=== PATIENT | male | born 1985 | race Caucasian/White ===

== ENCOUNTER 2024-12-26 09:05 | Emergency (ER) | payer OTHER, SELFPAY ==
--- NOTE | 2024-12-26 09:07 | ED_ITS ---
HPI - Extremity Injury (Lower) General Chief Complaint: Skin/Abscess/Foreign Body Stated Complaint: R knee pain Time Seen by Provider: 12/26/24 09:06 Source: patient Mode of arrival: ambulatory Limitations: no limitations History of Present Illness HPI Narrative: Rufus is a 39 year old male patient presenting to the clinic today with c/o right redness and swelling times 4-5 days. He reports he may have been bit by an insect. Has some dried yellow honey-crusted discharge over the right anterior knee with localized redness and swelling. History of MRSA in the past. Denies any fevers, chills, body aches. Has not taken any medications to treat his symptoms. Denies any itching or pain at this time. Related Data Home Medications ?Medication ?Instructions ?Recorded ?Confirmed ?Last Taken ?Type diphenhydramine HCl 50 mg capsule 50 mg PO QHS 5 07/29/24 Unknown History ([employer] [facility]els) pantoprazole 40 mg tablet,delayed mg PO 07/29/2407/29 Unknown History release duloxetine 30 mg capsule,delayed mg PO 12/26/24 Unkno wn History release methylphenidate HCl 18 mg mg PO 12/26/24 Unknown Hist ory tablet,extended release 24 hr Allergies Allergy/AdvReac Type Severity Reaction Status Date / Time doxycycline Allergy Mild Other Verified 07/29/24 14:13 Review of Systems Review of Systems: Pertinent positives per HPI. Patient denies any fever, chills, rash, headache, visual changes, dizziness, cough, runny nose, sore throat, shortness of breath, chest pain, palpitations, nausea, vomiting, diarrhea, constipation, abdominal pain, or any urinary issues. [facility] Family History Family History Grandparent Diabetes mellitus Hypertension Social History Social History Smoking status: Never smoker Alcohol intake: former Substance use: never Substance use type: does not use Comments At the time of my signature, I reviewed and agree with the nursing past medical, surgical, social, and family history. There is no relevant family history pertinent to the patient complaint. Exam Narrative: General: Well-developed, well nourished, in no apparent distress Head: Normocephalic, atraumatic. Cardio: Regular rate and rhythm, s1 and s2 normal, no murmur appreciated. Resp: Clear to auscultation bilaterally, no rhonchi, rales, wheezing or rubs. Musculoskeletal: No deformity, non-tender to palpation, grossly normal range of motion, muscle strength strong and equal, peripheral pulse strong, no edema, no cyanosis, normal gait and station General: Well-developed, well nourished, in no apparent distress Head: Normocephalic, atraumatic. Cardio: Regular rate and rhythm, s1 and s2 normal, no murmur appreciated. Resp: Clear to auscultation bilaterally, no rhonchi, rales, wheezing or rubs. Integumentary: [place], warm, and dry, swelling to the right anterior knee with erythema, small wound area that has honey-crusted dry discharge to the anterior knee measuring 0.5cm x0.5cm. Redness is irregular and measuring 13 cm x 7 cm. No palpable abscess. Course Course Emergency Course: Portions of this record may have been created with voice recognition software. Level of Care: Express Care Visit Vital Signs Vital signs: Vital Signs Temperature 36.9 C 12/26/24 09:18 Pulse Rate 90 12/26/24 09:18 Respiratory Rate 18 12/26/24 09:18 Blood Pressure 142/84 H 12/26/24 09:18 Pulse Oximetry 100 12/26/24 09:18 Oxygen Delivery Room Air 12/26/24 09:18 Temperature 36.9 C 12/26/24 09:18 Pulse Rate 90 12/26/24 09:18 Respiratory Rate 18 12/26/24 09:18 Blood Pressure 142/84 H 12/26/24 09:18 Pulse Oximetry 100 12/26/24 09:18 Oxygen Delivery Room Air 12/26/24 09:18 Vital signs reviewed MDM - Extremity Injury (Lower) MDM Narrative Medical decision making narrative: At the time of visit patient is resting comfortably on the exam table. Patient appears to be nontoxic. C/o right redness and swelling times 4-5 days. He reports he may have been bit by an insect. Has some dried yellow honey-crusted discharge over the right anterior knee with localized redness and swelling. History of MRSA in the past. Denies any fevers, chills, body aches. Has not taken any medications to treat his symptoms. Denies any pain at this time. On exam patient has a swelling to the right anterior knee with erythema, small wound area that has honey-crusted dry discharge to the anterior knee measuring 0.5cm x0.5cm. Redness is irregular and measuring 13 cm x 7 cm. No palpable abscess. Plan: I suspect patient has right knee cellulitis. Prescription for Bactrim DS and cephalexin was sent to the pharmacy as patient has history of MRSA in the past. Recommend follow-up with his PCP in 3-5 days. Go to the emergency room if symptoms worsen. Supportive measures were discussed with the patient and they voiced understanding discharge instructions and agrees to treatment plan. Return precautions reviewed Differential Diagnosis Differential diagnosis: Likely acute internal derangement of knee and other (Knee sprain, tibia fracture, patellar fracture, femoral fracture) Discharge Plan Discharge Clinical Impression: Cellulitis of knee, right Patient Disposition: Home Condition: Stable Instructions: Antibiotic Form, Cellulitis (ED) Additional Instructions: Rest, ice, and elevate Tylenol/motrin for pain as discussed. Take Bactrim DS and Cephalexin as prescribed Follow up with your PCP in 3-5 days if symptoms are persisting or go to the emergency room if symptoms are worse Go to the emergency room if signs and symptoms of infection or worsening- increase in redness, increase in swelling, increase in pain, fever not controlled by Tylenol Motrin, purulent discharge, or streaking Patient Language: Iraqi Prescriptions: New cephalexin 500 mg capsule 500 mg PO Q8H 7 Days Qty: 21 0RF sulfamethoxazole-trimethoprim [Bactrim DS] 800-160 mg tablet 1 tablet PO Q12H 7 Days Qty: 14 0RF No Action methylphenidate HCl 18 mg tablet extended release 24hr PO duloxetine 30 mg capsule,delayed release(DR/EC) PO duloxetine 60 mg capsule,delayed release(DR/EC) 60 mg PO DAILY Qty: 90 1RF hydroxyzine HCl 10 mg tablet 10 mg PO TID PRN (Reason: anxiety) Qty: 30 0RF diphenhydramine HCl [[employer]isom SleepGels] 50 mg capsule 50 mg PO QHS pantoprazole 40 mg tablet,delayed release (DR/EC) PO methylphenidate HCl [Concerta] 27 mg tablet extended release 24hr 27 mg PO QAM Qty: 30 0RF meloxicam 7.5 mg tablet 7.5 mg PO DAILY Qty: 30 0RF Follow-up/Referrals: UNKNOWN,DOCTOR [Non-Staff] Time of Disposition: 09:31 Quality NIHSS Nursing Documentation ED NIHSS nursing documentation: reviewed/agree
[2024-12-26 09:18] VITALS: BP 142/84; PULSE 90; RESP 18; TEMP 36.9; O2SAT 100
== END 2024-12-26 09:40 | disposition home or self-care (01) ==
PROVIDERS: Emergency Provider Nurse Practitioner Family; PCP Family Medicine
DX: L03.115 Cellulitis of right lower limb (principal); F41.9 Anxiety disorder, unspecified
CPT/HCPCS: 99213; G0463

== ENCOUNTER 2024-12-28 08:10 | Emergency (ER) | payer OTHER, SELFPAY ==
[2024-12-28 08:21] VITALS: BP 131/83; PULSE 107; RESP 18; TEMP 37.1; O2SAT 100
--- NOTE | 2024-12-28 08:32 | ED_ITS ---
HPI - Skin/Abscess/Foreign Bdy General Chief complaint: Extremity Problem,Nontraumatic Stated complaint: RT Leg Infection Time Seen by Provider: 12/28/24 08:25 Source: patient Mode of arrival: ambulatory Limitations: no limitations History of Present Illness HPI narrative: Rufus is a 39-year-old male patient presenting to the clinic today with complaints of right leg infection spreading since his last visit. He was seen by myself 2 days ago and was diagnosed with cellulitis over his right knee and he was prescribed Bactrim DS and cephalexin. Has been taking the antibiotics as prescribed and also applying Mupirocin ointment over the area. History of MRSA. States allergy to doxycycline-cause liver failure. He is not diabetic. Redness is now extended to the mid tib fib and above the knee- distal femur. Does have a large open blister to the anterior knee that is new. He denies any fever. Previous HPI from 12/26/24 visit: Rufus is a 39 year old male patient presenting to the clinic today with c/o right redness and swelling times 4-5 days. He reports he may have been bit by an insect. Has some dried yellow honey-crusted discharge over the right anterior knee with localized redness and swelling. History of MRSA in the past. Denies any fevers, chills, body aches. Has not taken any medications to treat his symptoms. Denies any itching or pain at this time. Related Data Home Medications ?Medication ?Instructions ?Recorded ?Confirmed ?Last Taken ?Type diphenhydramine HCl 50 mg capsule 50 mg PO QHS 5 07/29/24 Unknown [facility] pantoprazole 40 mg tablet,delayed mg PO 07/29/2407/29 Unknown History release duloxetine 30 mg capsule,delayed mg PO 12/26/24 Unkno wn History release methylphenidate HCl 18 mg mg PO 12/26/24 Unknown Hist ory tablet,extended release 24 hr Allergies Allergy/AdvReac Type Severity Reaction Status Date / Time doxycycline Allergy Mild Other Verified 12/28/24 08:37 Review of Systems Review of Systems: Pertinent positives per HPI. Patient denies any fever, chills, rash, headache, visual changes, dizziness, cough, runny nose, sore throat, shortness of breath, chest pain, palpitations, nausea, vomiting, diarrhea, constipation, abdominal pain, or any urinary issues. [facility] Family History Family History Grandparent Diabetes mellitus Hypertension Social History Social History Smoking status: Never smoker Alcohol intake: former Substance use: never Substance use type: does not use Comments At the time of my signature, I reviewed and agree with the nursing past medical, surgical, social, and family history. There is no relevant family history pertinent to the patient complaint. Exam Narrative: General: Well-developed, well nourished, in no apparent distress Head: Normocephalic, atraumatic. Cardio: Regular rate and rhythm, s1 and s2 normal, no murmur appreciated. Resp: Clear to auscultation bilaterally, no rhonchi, rales, wheezing or rubs. Integumentary: [place], warm, and dry, right lower extremit- swelling, redness, and erythema to the right anterior knee, anterior leg (mid tib fib) and anterior distal femur. Large open blister over the right antierior knee. Course Course Emergency Course: Portions of this record may have been created with voice recognition software. Level of Care: Express Care Visit Vital Signs Vital signs: Vital Signs Temperature 37.1 C 12/28/24 08:21 Pulse Rate 107 H 12/28/24 08:21 Respiratory Rate 18 12/28/24 08:21 Blood Pressure 131/83 12/28/24 08:21 Pulse Oximetry 100 12/28/24 08:21 Oxygen Delivery Room Air 12/28/24 08:21 Temperature 37.1 C 12/28/24 08:21 Pulse Rate 107 H 12/28/24 08:21 Respiratory Rate 18 12/28/24 08:21 Blood Pressure 131/83 12/28/24 08:21 Pulse Oximetry 100 12/28/24 08:21 Oxygen Delivery Room Air 12/28/24 08:21 Vital signs reviewed Transfer Transfered to: [facility] Transportation: Other (Private car) Transfer rationale: Higher level of care- outpatient antibiotic failure- right lower extremity cellulitis. History of MRSA. Accepting physician: Dr. Wood Transfer comments: Private car MDM - Skin/Abscess/Foreign Bdy MDM Narrative Medical decision making narrative: At the time of visit patient is resting comfortably on the exam table. Patient appears to be nontoxic. Complaints of right leg infection spreading since his last visit. He was seen by myself 2 days ago and was diagnosed with cellulitis over his right knee and he was prescribed Bactrim DS and cephalexin. Has been taking the antibiotics as prescribed and also applying Mupirocin ointment over the area. History of MRSA. States allergy to doxycycline-cause liver failure. He is not diabetic. Redness is now extended to the mid tib fib and above the knee- distal femur. Does have a large open blister to the anterior knee that is new. Denies any fever. Plan: Patient has been taking Bactrim DS and Keflex as prescribed and also applying mupirocin cream to the affected area for the past 2 days. Recommend higher level of care due to outpatient antibiotic failure-recommend going to the ER for lab work and possibly IV antibiotics. Patient agreeable to this plan. Would like to go to [facility] emergency room. Contacted Dr. Wood at [facility] and he accepts patient for transfer. Patient to be transferred via private car. Differential Diagnosis Differential diagnosis: Likely abscess of skin or subcutaneous tissue and cellulitis Discharge Plan Discharge Clinical Impression: Cellulitis of leg, right Patient Disposition: Acute Care Hospital Condition: Stable Patient Language: Korean Prescriptions: No Action methylphenidate HCl 18 mg tablet extended release 24hr PO duloxetine 30 mg capsule,delayed release(DR/EC) PO cephalexin 500 mg capsule 500 mg PO Q8H 7 Days Qty: 21 0RF sulfamethoxazole-trimethoprim [Bactrim DS] 800-160 mg tablet 1 tablet PO Q12H 7 Days Qty: 14 0RF duloxetine 60 mg capsule,delayed release(DR/EC) 60 mg PO DAILY Qty: 90 1RF hydroxyzine HCl 10 mg tablet 10 mg PO TID PRN (Reason: anxiety) Qty: 30 0RF diphenhydramine HCl [[employer]om SleepGels] 50 mg capsule 50 mg PO QHS pantoprazole 40 mg tablet,delayed release (DR/EC) PO methylphenidate HCl [Concerta] 27 mg tablet extended release 24hr 27 mg PO QAM Qty: 30 0RF meloxicam 7.5 mg tablet 7.5 mg PO DAILY Qty: 30 0RF Follow-up/Referrals: PHYSICIAN,[facility] [employer] [employer] [Primary Care Provider, Internal Medicine] Time of Disposition: 08:30 Quality NIHSS Nursing Documentation ED NIHSS nursing documentation: reviewed/agree
== END 2024-12-28 08:32 | disposition short-term general hospital (02) ==
PROVIDERS: Emergency Provider Nurse Practitioner Family
DX: L03.115 Cellulitis of right lower limb (principal); Z86.14 Personal history of Methicillin resistant Staphylococcus aureus infection; F41.9 Anxiety disorder, unspecified
CPT/HCPCS: 99212; G0463

== ENCOUNTER 2024-12-28 08:54 | Inpatient (IN) | payer OTHER, SELFPAY ==
[2024-12-28] VITALS (24 sets, daily range): BP systolic 106–132; BP diastolic 54–93; PULSE 78–122; RESP 11–24; TEMP 36.6–36.8; O2SAT 95–100; BMI 21.5
--- NOTE | ~2024-12-28 | US_ITS ---
EXAMINATION: US venous doppler LE RT, 12/28/2024 10:41 CDT HISTORY: R LE swelling Comparison: None Technique: Boyd-scale and color Doppler images were attempted of the lower saphenofemoral junction, common femoral vein,superficial femoral vein, proximal deep femoral vein, proximal deep femoral vein, popliteal vein and posterior tibial veins. Findings: Deep Venous System:Normal flow, augmentation and compressibility. No echogenic thrombus identified. The contralateral saphenofemoral junction appears unremarkable. Superficial Venous SystemNo superficial thrombophlebitis. Soft tissues: Soft tissues are unremarkable. Impression: Negative for DVT. Reviewed, dictated and finalized at location P. Impression: Negative for DVT.
--- NOTE | ~2024-12-28 | XR_ITS ---
Examination: XR knee RT min 4V, XR tibia fibula RT 2V Clinical History: R knee infection Comparison: None Technique: 4 views right knee, 2 views right tibia fibula 4 films Findings/impression: Right knee: 1. No evidence of osteomyelitis. 2. No evidence of gas-forming organism. 3. No fracture or effusion. 4. Anterior soft tissues severe swelling and/or cellulitis. Right tibia-fibula: 1. No evidence of osteomyelitis. 2. No evidence of gas-forming organism. 3. No fracture or other bony abnormality. Reviewed, dictated and finalized at location R.
--- NOTE | 2024-12-28 09:24 | ED_ITS ---
HPI - Skin/Abscess/Foreign Bdy General Chief complaint: Skin/Abscess/Foreign Body <Maddie Agustin APRN - Last Filed: 12/28/24 11:50> Stated complaint: RLE cellulitis, from urgent care <Maddie Agustin APRN - Last Filed: 12/28/24 11:50> Time Seen by Provider: 12/28/24 09:04 <Maddie Agustin APRN - Last Filed: 12/28/24 11:50> History of Present Illness HPI narrative: Pt is a 39-year-old male presents to the ER with concerns for a right lower extremity is swollen. He reports he 1st noticed the redness and swelling about 1 week ago. Patient reports he went to urgent care on Friday where he was placed on Keflex and Bactrim. He reports the area of redness has grown. Patient denies any recent fevers, calf pain, or numbness/tingling in his right lower extremity. He endorses a history of alcohol abuse, PTSD, anxiety, and substance abuse. <Maddie Agustin APRN - Last Filed: 12/28/24 11:50> Related Data Home medications: Home Medications ?Medication ?Instructions ?Recorded ?Confirmed ?Last Taken ?Type diphenhydramine HCl 50 mg capsule 50 mg PO QHS 5 12/28/24 12/27/24 19:00 History ([facility]) pantoprazole 40 mg tablet,delayed 40 mg PO DAILY 07/2912/28/24 Unknown History release <Maddie Agustin APRN - Last Filed: 12/28/24 11:50> Allergies/Adverse reactions: Allergies Allergy/AdvReac Type Severity Reaction Status Date / Time doxycycline Allergy Severe Other Verified 12/28/24 13:26 <Maddie Agustin APRN - Last Filed: 12/28/24 11:50> Review of Systems 2 Review of Systems: All systems reviewed & are unremarkable except as noted in HPI and below <Maddie Agustin APRN - Last Filed: 12/28/24 11:50> PMFSH Family History Family History: Family History Grandparent Diabetes mellitus Hypertension <Maddie Agustin APRN - Last Filed: 12/28/24 11:50> Social History Social History: Social History Smoking status: Current every day smoker Tobacco type: e-cigarettes/vaping Additional smoking assessment comments: vapes; just graduated to 0% nicotine Alcohol intake: former Substance use: never Substance use type: does not use Lack of Transportation: No Lack of Food: Never True Current Housing: I Have Housing Concerned About Future Housing: No Difficulty Paying Gas/Electric Bills: No Difficulty Paying for Meds: No Currently Unemployed: No Education: Decline to Answer Difficulty w/ Childcare or Family Care: No Spiritual care concerns: No <Maddie Agustin APRN - Last Filed: 12/28/24 11:50> Exam 2 Narrative: GENERAL: Well appearing, well-nourished, non-toxic, in no acute distress. HEAD: Normocephalic, atraumatic. NECK: Supple. No adenopathy, no masses. RESPIRATORY: Airway patent, respirations nonlabored. Clear to auscultation bilaterally, no rales, rhonchi, wheezing. CARDIOVASCULAR: Regular rate and rhythm without murmurs, rubs, or gallops. Peripheral pulses 2+ and equal bilaterally. ABDOMINAL: Soft, nontender, nondistended, no hepatosplenomegaly. Normoactive BS. MUSCULOSKELETAL: Moves all extremities. Strength/ROM intact without gross deformities. SKIN: [place], warm, and dry. + swelling to the right anterior knee with erythema, small wound area that has honey-crusted dry discharge to the anterior knee measuring 0.5cm x0.5cm. Redness is irregular and measuring 13 cm x 7 cm. No palpable abscess. NEURO: A&O X3. Speech clear. Cranial nerves II-XII intact. No ataxic movements. PSYCHIATRIC: Appropriate mood and affect. Normal interaction. <Maddie Agustin APRN - Last Filed: 12/28/24 11:50> Course FORENSICS TEAM DIRECTOR/PA Physician Supervision This visit was performed by both a physician and an APC. I performed all aspects of the MDM as documented. <Bennie Wood MD - Last Filed: 12/28/24 17:33> Vital Signs Vital signs: Vital Signs Temperature 98.2 F 12/28/24 08:59 Pulse Rate 94 12/28/24 08:59 Respiratory Rate 16 12/28/24 08:59 Blood Pressure 106/54 L 12/28/24 08:59 Pulse Oximetry 100 12/28/24 08:59 Oxygen Delivery Room Air 12/28/24 08:59 Temperature 97.9 F 12/28/24 13:59 Pulse Rate 86 12/28/24 13:59 Respiratory Rate 14 12/28/24 13:59 Blood Pressure 118/78 12/28/24 13:59 Pulse Oximetry 100 12/28/24 13:59 Oxygen Delivery Room Air 12/28/24 13:30 <Maddie Agustin APRN - Last Filed: 12/28/24 11:50> Vital Signs Temperature 98.2 F 12/28/24 08:59 Pulse Rate 94 12/28/24 08:59 Respiratory Rate 16 12/28/24 08:59 Blood Pressure 106/54 L 12/28/24 08:59 Pulse Oximetry 100 12/28/24 08:59 Oxygen Delivery Room Air 12/28/24 08:59 Temperature 97.9 F 12/28/24 13:59 Pulse Rate 86 12/28/24 13:59 Respiratory Rate 14 12/28/24 13:59 Blood Pressure 118/78 12/28/24 13:59 Pulse Oximetry 100 12/28/24 13:59 Oxygen Delivery Room Air 12/28/24 13:30 <Bennie Wood MD - Last Filed: 12/28/24 17:33> MDM - Skin/Abscess/Foreign Bdy MDM Narrative Medical decision making narrative: Pt is a 39-year-old male presents to the ER with concerns for a right lower extremity is swollen. He reports he 1st noticed the redness and swelling about 1 week ago. Patient reports he went to urgent care on Friday where he was placed on Keflex and Bactrim. He reports the area of redness has grown. Patient denies any recent fevers, calf pain, or numbness/tingling in his right lower extremity. He endorses a history of alcohol abuse, PTSD, anxiety, and substance abuse. Labs Ordered: CBC, CMP, lactic acid, coags, CRP, blood cultures, aerobic/anaerobic culture, PTT, INR, UA Imaging Ordered: X-ray right knee, x-ray right tib-fib Medications Ordered: 2 L normal saline IV bolus, Ancef 1 g IV Diagnosis: Cellulitis, failed outpatient treatment MDM: Results of imaging and lab work shared with patient. It was advised patient be admitted to the hospital for further evaluation and treatment. Patient verbalized understanding and are in agreement with plan. 1100- Spoke with hospitalist, Dr. Carreno, who was in agreement with plan for admission. Pt will be admitted to the med/surg floor. <Maddie Agustin APRN - Last Filed: 12/28/24 11:50> Pt is a 39-year-old male presents to the ER with concerns for a right lower extremity is swollen. He reports he 1st noticed the redness and swelling about 1 week ago. Patient reports he went to urgent care on Friday where he was placed on Keflex and Bactrim. He reports the area of redness has grown. Patient denies any recent fevers, calf pain, or numbness/tingling in his right lower extremity. He endorses a history of alcohol abuse, PTSD, anxiety, and substance abuse. Labs Ordered: CBC, CMP, lactic acid, coags, CRP, blood cultures, aerobic/anaerobic culture, PTT, INR, UA Imaging Ordered: X-ray right knee, x-ray right tib-fib Medications Ordered: 2 L normal saline IV bolus, Ancef 1 g IV Diagnosis: Cellulitis, failed outpatient treatment MDM: Results of imaging and lab work shared with patient. It was advised patient be admitted to the hospital for further evaluation and treatment. Patient verbalized understanding and are in agreement with plan. 1100- Spoke with hospitalist, Dr. Carreno, who was in agreement with plan for admission. Pt will be admitted to the med/surg floor. This visit was performed by both a physician and an APC. I performed all aspects of the MDM as documented. <Bennie Wood MD - Last Filed: 12/28/24 17:33> Differential Diagnosis Differential diagnosis: Likely abscess of skin or subcutaneous tissue, urticaria, cellulitis and contact dermatitis <Maddie Agustin APRN - Last Filed: 12/28/24 11:50> Lab Data Attestation: I reviewed the patient's lab results. <Maddie Eliane Agustin APRN - Last Filed: 12/28/24 11:50> Result diagrams: 12/28/24 09:44 12/28/24 09:44 <Maddieliya Agustin APRN - Last Filed: 12/28/24 11:50> Labs: Lab Results 12/28/24 12/28/24 Range/Units 09:44 10:26 WBC 10.2 H (4.5-10.0) K/mm3 RBC 4.43 L (4.6-6.20) M/mm3 Hgb 13.2 L (14.0-18.0) g/dL Hct 39.4 L (42.0-52.0) % MCV 88.9 (80-100) fl MCH 29.8 (26-34) pg MCHC 33.5 (32-36) g/dl RDW 12.9 (11.5-14.5) % Plt Count 223 (150-375) k/mm3 MPV 8.7 (7.4-10.4) fl Immature Gran % (Auto) 0.7 H (0-0.5) % Neut % (Auto) 82.7 H (45.5-73.1) % Lymph % (Auto) 9.6 L (18.3-44.2) % [place] % (Auto) 6.6 (2.6-8.5) % Eos % (Auto) 0.2 (0-4.4) % Baso % (Auto) 0.2 (0.2-1.2) % Lymph # (Auto) 0.98 (0.9-3.2) K/mm3 [place] # (Auto) 0.7 H (0.1-0.6) K/mm3 Eos # (Auto) 0.0 (0-0.3) K/mm3 Baso # (Auto) 0.0 (0.0-0.1) K/mm3 Abs Immat Gran (auto) 0.07 H (0.00-0.031) K/mm3 Absolute Neuts (auto) 8.5 H (1.3-6.7) K/mm3 Absolute Nucleated RBC 0.000 (0.0-0.012) K/mm3 Nucleated RBC % 0.0 (0.0-0.2) % PT 14.1 (11.1-14.7) Seconds INR 1.1 APTT 38.0 H (22.3-36.8) Seconds Sodium 136 L (137-145) mmol/L Potassium 3.8 (3.4-5.0) mmol/L Chloride 100 (98-107) mmol/L Carbon Dioxide 26 (22-30) mmol/L Anion Gap 10 (4-12) mmol/L BUN 11 (9-20) mg/dL Creatinine 0.92 (0.7-1.3) mg/dL Estim Creat Clear Calc 98 ml/min Estimated GFR > 60 (59 - ) Glucose 110 (65-110) mg/dL Lactic Acid 1.1 (0.7-2.0) mmol/L Calcium 9.0 (8.4-10.2) mg/dL Total Bilirubin 1.2 (0.2-1.3) mg/dL AST 41 (17-59) U/L ALT 59 H (6-50) U/L Alkaline Phosphatase 89 (38-126) U/L C-Reactive Protein 19.5 H (<1.0) mg/dL Total Protein 7.4 (6.3-8.2) g/dL Albumin 4.2 (3.5-5.1) g/dL Urine Color Yellow (Yellow) Urine Appearance Clear (Clear) Urine pH 8.0 (5.0-9.0) Ur Specific [place] 1.014 (1.001-1.035) Urine Protein Trace (Negative) mg/dL Urine Glucose (UA) Negative (Negative) mg/dL Urine Ketones Negative (Negative) mg/dL Ur Blood (Man) Negative (Negative) Urine Nitrate Negative (Negative) Urine Bilirubin Negative (Negative) Urine Urobilinogen 1.0 (<2.0) mg/dL Leukocyte Esterase Rfl Negative (Negative) AARON/UL Urine RBC 0-2 (0-2) /hpf Urine WBC 0-5 (0-3) /hpf Ur Squamous Epith Cells None seen (Few) /hpf Urine Bacteria None seen /hpf Urine Casts 0-2 Urine Opiates Screen Positive A (Negative) Urine Methadone Screen Negative (Negative) Ur Barbiturates Screen Negative (Negative) Ur Phencyclidine Scrn Negative (Negative) Ur Amphetamine Screen Negative (Negative) U Benzodiazepines Scrn Negative (Negative) Urine Cocaine Screen Negative (Negative) U Cannabinoids Screen Positive A (Negative) <Maddie Agustin, RN [employer] - Last Filed: 12/28/24 11:50> Lab Results 12/28/24 12/28/24 Range/Units 09:44 10:26 WBC 10.2 H (4.5-10.0) K/mm3 RBC 4.43 L (4.6-6.20) M/mm3 Hgb 13.2 L (14.0-18.0) g/dL Hct 39.4 L (42.0-52.0) % MCV 88.9 (80-100) fl MCH 29.8 (26-34) pg MCHC 33.5 (32-36) g/dl RDW 12.9 (11.5-14.5) % Plt Count 223 (150-375) k/mm3 MPV 8.7 (7.4-10.4) fl Immature Gran % (Auto) 0.7 H (0-0.5) % Neut % (Auto) 82.7 H (45.5-73.1) % Lymph % (Auto) 9.6 L (18.3-44.2) % [place] % (Auto) 6.6 (2.6-8.5) % Eos % (Auto) 0.2 (0-4.4) % Baso % (Auto) 0.2 (0.2-1.2) % Lymph # (Auto) 0.98 (0.9-3.2) K/mm3 [place] # (Auto) 0.7 H (0.1-0.6) K/mm3 Eos # (Auto) 0.0 (0-0.3) K/mm3 Baso # (Auto) 0.0 (0.0-0.1) K/mm3 Abs Immat Gran (auto) 0.07 H (0.00-0.031) K/mm3 Absolute Neuts (auto) 8.5 H (1.3-6.7) K/mm3 Absolute Nucleated RBC 0.000 (0.0-0.012) K/mm3 Nucleated RBC % 0.0 (0.0-0.2) % PT 14.1 (11.1-14.7) Seconds INR 1.1 APTT 38.0 H (22.3-36.8) Seconds Sodium 136 L (137-145) mmol/L Potassium 3.8 (3.4-5.0) mmol/L Chloride 100 (98-107) mmol/L Carbon Dioxide 26 (22-30) mmol/L Anion Gap 10 (4-12) mmol/L BUN 11 (9-20) mg/dL Creatinine 0.92 (0.7-1.3) mg/dL Estim Creat Clear Calc 98 ml/min Estimated GFR > 60 (59 - ) Glucose 110 (65-110) mg/dL Lactic Acid 1.1 (0.7-2.0) mmol/L Calcium 9.0 (8.4-10.2) mg/dL Total Bilirubin 1.2 (0.2-1.3) mg/dL AST 41 (17-59) U/L ALT 59 H (6-50) U/L Alkaline Phosphatase 89 (38-126) U/L C-Reactive Protein 19.5 H (<1.0) mg/dL Total Protein 7.4 (6.3-8.2) g/dL Albumin 4.2 (3.5-5.1) g/dL Urine Color Yellow (Yellow) Urine Appearance Clear (Clear) Urine pH 8.0 (5.0-9.0) Ur Specific [place] 1.014 (1.001-1.035) Urine Protein Trace (Negative) mg/dL Urine Glucose (UA) Negative (Negative) mg/dL Urine Ketones Negative (Negative) mg/dL Ur Blood (Man) Negative (Negative) Urine Nitrate Negative (Negative) Urine Bilirubin Negative (Negative) Urine Urobilinogen 1.0 (<2.0) mg/dL Leukocyte Esterase Rfl Negative (Negative) AARON/UL Urine RBC 0-2 (0-2) /hpf Urine WBC 0-5 (0-3) /hpf Ur Squamous Epith Cells None seen (Few) /hpf Urine Bacteria None seen /hpf Urine Casts 0-2 Urine Opiates Screen Positive A (Negative) Urine Methadone Screen Negative (Negative) Ur Barbiturates Screen Negative (Negative) Ur Phencyclidine Scrn Negative (Negative) Ur Amphetamine Screen Negative (Negative) U Benzodiazepines Scrn Negative (Negative) Urine Cocaine Screen Negative (Negative) U Cannabinoids Screen Positive A (Negative) <Bennie Wood MD - Last Filed: 12/28/24 17:33> Imaging Data Attestation: I personally reviewed and interpreted this imaging study as follows: < Maddie Agustin APRN - Last Filed: 12/28/24 11:50> Discharge Plan Discharge Clinical Impression: Cellulitis of leg, right <Maddie Agustin APRN - Last Filed: 12/28/24 11:50> Patient Disposition: Still a Patient <Maddie Agustin APRN - Last Filed: 12/28/24 11:50> Condition: Stable <Maddie Agustin APRN - Last Filed: 12/28/24 11:50>
[2024-12-28 09:51] LABS: Hematocrit 39.4 % (42.0-52.0); Hemoglobin 13.2 g/dL (14.0-18.0); Immature Granulocyte Percent A 0.7 % (0-0.5); Lymphocytes Absolute Auto 0.98 K/mm3 (0.9-3.2); Mean Corpuscular HGB Conc 33.5 g/dl (32-36); Mean Corpuscular Hemoglobin 29.8 pg (26-34); Mean Corpuscular Volume 88.9 fl (80-100); Nucleated Red Blood Cells Absolute Auto 0.000 K/mm3 (0.0-0.012); Nucleated Red Blood Cells Perc 0.0 % (0.0-0.2); Platelet Count Result 223 k/mm3 (150-375); Red Blood Count 4.43 M/mm3 (4.6-6.20); White Blood Count 10.2 K/mm3 (4.5-10.0)
[2024-12-28 10:05] LABS: Alanine Aminotransferase 59 U/L (6-50); Albumin Level 4.2 g/dL (3.5-5.1); Alkaline Phosphatase 89 U/L (38-126); Anion Gap 10 mmol/L (4-12); Aspartate Amino Transferase 41 U/L (17-59); Bilirubin,Total 1.2 mg/dL (0.2-1.3); Blood Urea Nitrogen 11 mg/dL (9-20); Calcium 9.0 mg/dL (8.4-10.2); Carbon Dioxide 26 mmol/L (22-30); Chloride 100 mmol/L (98-107); Estimated CRCL calculation 98 ml/min; Estimated Glomerular Filt Rate > 60; Glucose 110 mg/dL (65-110); INR 1.1; Partial Thromboplastin Time 38.0 Seconds (22.3-36.8); Potassium 3.8 mmol/L (3.4-5.0); Prothrombin Time 14.1 Seconds (11.1-14.7); Sodium 136 mmol/L (137-145); Total Protein 7.4 g/dL (6.3-8.2)
[2024-12-28 10:20] LABS: CRP 19.5 mg/dL (<1.0)
[2024-12-28] MEDS: KETOROLAC 15 MG/ML VIAL (*BKC) IV PUSH ×2 (10:23→21:59)
[2024-12-28] MEDS: ceFAZolin 1 GM in SODIUM CHLORIDE 0.9% IV 50 ML 100 ML IVPB (10:25)
[2024-12-28] MEDS: SODIUM CHLORIDE 0.9% IV 1,000 ML 999 ML IV CONT ×2 (10:25→11:13)
[2024-12-28 10:40] LABS: Add Urine Microscopic? YES; Appearance Urine Clear (Clear); Glucose Urine UA Negative (Negative); Leukocyte Esterase Ur Negative LEU/UL (Negative); Nitrate Urine Negative (Negative); Non Pathogenic Casts 0-2; Specific Grav Ur 1.014 (1.001-1.035)
[2024-12-28 11:16] LABS: Cannabinoid Screen Urine Positive (Negative)
[2024-12-28] MEDS: SODIUM CHLORIDE 0.9% IV 200 ML 999 ML IV CONT (12:29)
--- NOTE | 2024-12-28 13:12 | ADMGEN ---
This patient, Rufus Manuel, was admitted to [facility] Surg Room 315-01. Patient/family oriented to hospital policies and general routines including ID bracelet, bed and alarms, visiting hours, pain management, procedures, bathroom and other care routines, personal items, smoking policy, room service/diet, and visiting hours. Information on how to activate the Rapid Response Team has been discussed. Patient/Family are encouraged to report perceived risks to care and to ask questions if they do not understand what they are told or what they should do.
--- NOTE | 2024-12-28 18:00 | P.HP_ITS ---
H&P: HPI History of Present Illness Date/Time: 12/28/24 18:00 Chief Complaint: right leg pain and redness Narrative: 39 yo male with PMH of anxiety who presented to the ER on account of worsening right knee pain, redness and swelling, Patient noted he noticed a pimple spot on his knee about a week however it was continued to worsen by increasing pain and redness whcih caused him to presented to the Urgent care on Friday where he was given Keflex adn bactrim, symptoms continued to worsen regardless prompting him to present to the ER for proper eval and care. DEnies any chest pain, abd pain, vomiting, diarrhea, SOB and fever. Noted he noticed a skin erosion today. ER eval notable Temp 98.8, HR 107, RR 18, RR 18 and BP 131/83. Labs notable for WBC 10.2, ALT 59, XR tibia/fibular and knee no acute changes. Venous doppler no thrombosis. He was started on Keflex prior to admission. Review of Systems Review of Systems: All other systems were reviewed and negative except as noted in the HPI above [facility] Family History Family History Grandparent Diabetes mellitus Hypertension Social History Social History Smoking status: Current every day smoker Tobacco type: e-cigarettes/vaping Additional smoking assessment comments: vapes; just graduated to 0% nicotine Alcohol intake: former Substance use: never Substance use type: does not use Lack of Transportation: No Lack of Food: Never True Current Housing: I Have Housing Concerned About Future Housing: No Difficulty Paying Gas/Electric Bills: No Difficulty Paying for Meds: No Currently Unemployed: No Education: Decline to Answer Difficulty w/ Childcare or Family Care: No Spiritual care concerns: No Meds Home Medications and Allergies Home Medications ?Medication ?Instructions ?Recorded ?Confirmed ?Type duloxetine 60 mg capsule,delayed 60 mg PO DAILY #90 ca ps 07/05/24 12/28/24 Rx release diphenhydramine HCl 50 mg capsule 50 mg PO QHS 5 12/28/24 History ([facility]) pantoprazole 40 mg tablet,delayed 40 mg PO DAILY 07/2912/28/24 History release methylphenidate HCl 27 mg 27 mg PO QAM #30 tabs 12/28/24 Rx tablet,extended release 24 hr ([facility]) meloxicam 7.5 mg tablet 7.5 mg PO DAILY #30 tabs 12/28/24 Rx cephalexin 500 mg capsule 500 mg PO Q8H 7 days #21 cap s 12/26/24 12/28/24 Rx sulfamethoxazole 800 1 tablet PO Q12H 7 days #14 tabs 12/26/24 12/28/24 Rx mg-trimethoprim 160 mg tablet (Bactrim DS) Allergies Allergy/AdvReac Type Severity Reaction Status Date / Time doxycycline Allergy Severe Other Verified 12/28/24 13:26 Vital Signs Vital Signs - 24 hr 12/28/24 08:59 12/28/24 08:59 12/28/24 09:00 Temperature 98.2 F Pulse Rate 94 Respiratory Rate 16 Blood Pressure 106/54 L 132/93 H Pulse Oximetry 100 100 100 Oxygen Delivery Room Air 12/28/24 09:01 12/28/24 09:02 12/28/24 09:55 Temperature Pulse Rate 87 Respiratory Rate 16 Blood Pressure 106/54 L Pulse Oximetry 98 99 Oxygen Delivery 12/28/24 09:56 12/28/24 10:00 12/28/24 10:00 Temperature Pulse Rate 92 89 90 Respiratory Rate 14 18 18 Blood Pressure 126/84 124/90 124/90 Pulse Oximetry 100 100 99 Oxygen Delivery 12/28/24 10:01 12/28/24 10:15 12/28/24 10:16 Temperature Pulse Rate 91 89 89 Respiratory Rate 14 14 19 Blood Pressure 121/90 Pulse Oximetry 100 98 98 Oxygen Delivery 12/28/24 10:30 12/28/24 10:31 12/28/24 10:45 Temperature Pulse Rate 90 85 83 Respiratory Rate 13 12 16 Blood Pressure 115/83 Pulse Oximetry 100 98 100 Oxygen Delivery 12/28/24 10:46 12/28/24 11:00 12/28/24 11:01 Temperature Pulse Rate 85 91 86 Respiratory Rate 22 H 15 18 Blood Pressure 119/87 113/93 H Pulse Oximetry 99 100 100 Oxygen Delivery 12/28/24 11:15 12/28/24 11:30 12/28/24 11:45 Temperature Pulse Rate 83 79 81 Respiratory Rate 11 L 21 H 23 H Blood Pressure Pulse Oximetry 100 96 97 Oxygen Delivery 12/28/24 12:00 12/28/24 12:01 12/28/24 12:15 Temperature Pulse Rate 78 84 86 Respiratory Rate 24 H 23 H 13 Blood Pressure 107/77 Pulse Oximetry 98 98 100 Oxygen Delivery 12/28/24 13:30 12/28/24 13:59 Temperature 97.9 F Pulse Rate 86 Respiratory Rate 14 Blood Pressure 118/78 Pulse Oximetry 100 Oxygen Delivery Room Air Exam Narrative: General: alert and comfortable Eyes: EOMI, PERRLA ENNT External ears normal, Neck is supple, no masses, Respiratory systems: Clear to auscultation Cardiovascular S1, S2, normal rhythm, no murmur, rub, or gallop; no thrill or palpable murmurs on palpation. Gastrointestinal: soft, non-tender, and non-distended abdomen with no masses; BS present Skin: no rash, lesions, ulcerations, subcutaneous nodules or induration Musculoskeletal: Right knee erythema, tenderness and skin erosion Neurologic: Alert and oriented x3, non focal Mental Status Exam: normal affect H&P: Results Labs Labs: Short CBC 12/28/24 Range/Units 09:44 WBC 10.2 H (4.5-10.0) K/mm3 Hgb 13.2 L (14.0-18.0) g/dL Hct 39.4 L (42.0-52.0) % Plt Count 223 (150-375) k/mm3 BMP 12/28/24 09:44 Sodium 136 L Potassium 3.8 Chloride 100 Carbon Dioxide 26 BUN 11 Creatinine 0.92 Glucose 110 Calcium 9.0 Liver Function 12/28/24 Range/Units 09:44 Total Bilirubin 1.2 (0.2-1.3) mg/dL AST 41 (17-59) U/L ALT 59 H (6-50) U/L Alkaline Phosphatase 89 (38-126) U/L Albumin 4.2 (3.5-5.1) g/dL Urine 12/28/24 Range/Units 10:26 Urine Color Yellow (Yellow) Urine Appearance Clear (Clear) Urine pH 8.0 (5.0-9.0) Ur Specific [place] 1.014 (1.001-1.035) Urine Protein Trace (Negative) mg/dL Urine Glucose (UA) Negative (Negative) mg/dL Assessment and Plan Assessment and plan (1) Cellulitis of leg, right: Code(s): L03.115 - Cellulitis of right lower limb Status: Acute Plan Right knee cellulitis Blood and wound culture ordered from ER patient failed outpatient Keflex adn Bactrim Started on Rocephin and Vancomycin monitor Anxiety continue Cymbalta DVT prophylaxis on Sq Lovenox Full code SDM: Kasia Kaleb
[2024-12-28] MEDS: cefTRIAXone 1 GM in SODIUM CHLORIDE 0.9% IV 50 ML 100 ML IVPB (18:31)
[2024-12-28] MEDS: VANCOMYCIN 1,500 MG/NS 500 ML 1,500 MG/500 ML BAG 250 MG IVPB (19:12)
[2024-12-28] MEDS: MELATONIN 5 MG TABLET PO (22:01)
[2024-12-29 06:00] VITALS: BP 120/81; PULSE 77; RESP 18; TEMP 36.7; O2SAT 99
[2024-12-29] MEDS: VANCOMYCIN 1,500 MG/NS 500 ML 1,500 MG/500 ML BAG 250 MG IVPB ×2 (06:57→18:02)
[2024-12-29 07:10] LABS: Estimated CRCL calculation 108 ml/min; Estimated Glomerular Filt Rate > 60
[2024-12-29] MEDS: DULoxetine HCL 60 MG CAPSULE.DR PO (08:29)
[2024-12-29] MEDS: ENOXAPARIN 40 MG/0.4 ML SYRINGE SUB-Q (08:29)
[2024-12-29] MEDS: ACETAMINOPHEN 325 MG TABLET 650 MG PO (09:20)
--- NOTE | 2024-12-29 10:13 | PM.IMPN ---
Progress Note: A&P Assessment and Plan (1) Cellulitis of leg, right: Code(s): L03.115 - Cellulitis of right lower limb Status: Acute Plan Right knee cellulitis Blood and wound culture pending patient failed outpatient Keflex adn Bactrim Continue Rocephin and Vancomycin Patient noted that symptoms are improving monitor one more day Anxiety continue Cymbalta DVT prophylaxis on Sq Lovenox Full code Subjective Date/time seen: 12/29/24 10:13 Interval history: Comfortable at bedside adn noted improving symptoms Review of Systems Review of Systems: All other systems were reviewed and negative except as noted in the HPI above Exam Narrative: General: alert and comfortable Eyes: EOMI, PERRLA ENNT External ears normal, Neck is supple, no masses, Respiratory systems: Clear to auscultation Cardiovascular S1, S2, normal rhythm, no murmur, rub, or gallop; no thrill or palpable murmurs on palpation. Gastrointestinal: soft, non-tender, and non-distended abdomen with no masses; BS present Skin: no rash, lesions, ulcerations, subcutaneous nodules or induration Musculoskeletal: Right knee erythema, tenderness and skin erosion Neurologic: Alert and oriented x3, non focal Mental Status Exam: normal affect Objective Data Vital Signs Vital Signs: Vital Signs - 24 hr 12/28/24 10:15 12/28/24 10:16 12/28/24 10:30 Temperature Pulse Rate 89 89 90 Respiratory Rate 14 19 13 Blood Pressure 121/90 Pulse Oximetry 98 98 100 Oxygen Delivery 12/28/24 10:31 12/28/24 10:45 12/28/24 10:46 Temperature Pulse Rate 85 83 85 Respiratory Rate 12 16 22 H Blood Pressure 115/83 119/87 Pulse Oximetry 98 100 99 Oxygen Delivery 12/28/24 11:00 12/28/24 11:01 12/28/24 11:15 Temperature Pulse Rate 91 86 83 Respiratory Rate 15 18 11 L Blood Pressure 113/93 H Pulse Oximetry 100 100 100 Oxygen Delivery 12/28/24 11:30 12/28/24 11:45 12/28/24 12:00 Temperature Pulse Rate 79 81 78 Respiratory Rate 21 H 23 H 24 H Blood Pressure Pulse Oximetry 96 97 98 Oxygen Delivery 12/28/24 12:01 12/28/24 12:15 12/28/24 13:30 Temperature Pulse Rate 84 86 Respiratory Rate 23 H 13 Blood Pressure 107/77 Pulse Oximetry 98 100 Oxygen Delivery Room Air 12/28/24 13:59 12/28/24 22:01 12/28/24 22:30 Temperature 97.9 F 97.8 F Pulse Rate 86 122 H Respiratory Rate 14 16 Blood Pressure 118/78 108/62 Pulse Oximetry 100 95 Oxygen Delivery Room Air 12/29/24 06:00 Temperature 98.1 F Pulse Rate 77 Respiratory Rate 18 Blood Pressure 120/81 Pulse Oximetry 99 Oxygen Delivery Intake/Output Intake/Output: Intake & Output 12/26/24 12/27/24 12/28/24 12/29/24 23:59 23:59 23:59 23:59 Intake Total 2560 600 Balance 2560 600 Meds/Results Medications: Active Medications Generic Name Dose Route Start Last Admin Trade Name Freq PRN Reason Stop Dose Admin Acetaminophen 650 mg 12/29/24 08:59 12/29/24 09:20 Acetaminophen 325 Mg Tablet PO 650 mg Q6H PRN Administration Mild Pain (1-3) or Fever Duloxetine HCl 60 mg 12/29/24 09:00 12/29/24 08:29 Duloxetine Hcl 60 Mg Capsule.Dr PO 60 mg DAILY MADISON Administration Enoxaparin Sodium 40 mg 12/29/24 09:00 12/29/24 08:29 Enoxaparin 40 Mg/0.4 Ml Syringe SUB-Q 40 mg DAILY MADISON Administration Ceftriaxone Sodium 1 gm/ 50 mls @ 100 mls/hr 12/28/24 18:00 12/28/24 18:31 Sodium Chloride IVPB 100 mls/hr Q24H MADISON Administration Vancomycin HCl 1,500 mg in 500 mls @ 250 mls/hr 12/28/24 19:00 12/29/24 06:57 Vancomycin 1,500 Mg/Ns 500 Ml IVPB 250 mls/hr Q12H MADISON Administration Ketorolac Tromethamine 15 mg 12/28/24 19:48 12/28/24 21:59 Ketorolac 15 Mg/Ml Vial (*Bkc) IV PUSH 15 mg Q6H PRN Administration Pain Rated 4-6 Melatonin 5 mg 12/28/24 19:48 12/28/24 22:01 Melatonin 5 Mg Tablet PO 5 mg HS PRN Administration Insomnia Radiology Results: ITS Impressions Venous Doppler Study 12/28/24 11:52 Impression: Negative for DVT. Labs Labs: Laboratory Results - last 24 hr 12/28/24 12/28/24 12/29/24 09:44 10:26 05:26 Creatinine 0.82 Estim Creat Clear Calc 108 Estimated GFR > 60 C-Reactive Protein 19.5 H Urine Color Yellow Urine Appearance Clear Urine pH 8.0 Ur Specific [place] 1.014 Urine Protein Trace Urine Glucose (UA) Negative Urine Ketones Negative Ur Blood (Man) Negative Urine Nitrate Negative Urine Bilirubin Negative Urine Urobilinogen 1.0 Leukocyte Esterase Rfl Negative Urine RBC 0-2 Urine WBC 0-5 Ur Squamous Epith Cells None seen Urine Bacteria None seen Urine Casts 0-2 Urine Opiates Screen Positive A Urine Methadone Screen Negative Ur Barbiturates Screen Negative Ur Phencyclidine Scrn Negative Ur Amphetamine Screen Negative U Benzodiazepines Scrn Negative Urine Cocaine Screen Negative U Cannabinoids Screen Positive A
[2024-12-29] MEDS: LORazepam (*CRX) 0.5 MG TABLET PO (12:43)
[2024-12-29 14:10] VITALS: BP 141/87; PULSE 73; RESP 18; TEMP 36.5; O2SAT 100
[2024-12-29 14:48] VITALS: BP 126/83
[2024-12-29] MEDS: KETOROLAC 15 MG/ML VIAL (*BKC) IV PUSH ×2 (15:51→20:41)
--- NOTE | 2024-12-29 16:11 | PM.CNGS ---
Assessment and Plan Assessment and plan (1) Cellulitis of leg, right: Code(s): L03.115 - Cellulitis of right lower limb Status: Acute Assessment and Plan: Patient presented to the ED yesterday after being sent by [facility] provider for right knee abscess and cellulitis. He had previously been seen at [facility] on 11/25 and was prescribed Keflex and Bactrim. He then returned to [facility] 2 days later with increased redness and now with open blister to the area. Upon admission to the hospital, he has been afebrile. Labs revealed white blood cell count 10.2. 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 Last abscess was to his hip in 2022. Denies any joint infection. Denies any systemic symptoms. Patient will have right knee incision and drainage this afternoon. Cultures will be sent. Continue IV antibiotics. (2) Anxiety: Code(s): F41.9 - Anxiety disorder, unspecified Status: Acute Assessment and Plan: Patient states that he has PTSD and anxiety and he was very nervous when incision and drainage of the abscess was mentioned. Will give dose of Ativan prior to procedure. History of Present Illness Consult details Consult date: 12/29/24 Reason for consult: other (right knee cellulitis) Requesting physician: Sameer Churchill MD Narrative: Patient is a 39-year-old male with history of alcohol abuse, PTSD, anxiety, and substance abuse who we have been asked to surgical consultation for a right knee cellulitis/abscess. Patient states that he 1st noticed redness and pain to his right lateral knee last or Friday. He presented to [facility] in [place] yesterday after being seen 2 days prior at the same location for right leg infection. He was diagnosed with cellulitis upon his 1st visit and prescribed Bactrim and cephalexin. Reportedly he had been taking the antibiotics as prescribed and also applying mupirocin ointment over the area. Upon his visit yesterday an open blister to the knee was present, and redness had spread to mid tib fib and above the knee to distal femur. Provider referred the patient to emergency department. Since his admission, patient has been afebrile. WBC 10.2 yesterday. He was started on IV ceftriaxone and vancomycin. Patient denies any systemic symptoms. He endorses history of subcutaneous abscesses of bilateral hips. He denies infection ever going to his joints. Patient is not a diabetic. He does state that he was not verbally told he had MRSA, but he reviewed his own chart and saw that he tested positive for MRSA when he had last had hip abscess in 2022. He states that with this wound he was taken to the OR for incision and drainage as it was open and draining fluid. [facility] Family History Family History Grandparent Diabetes mellitus Hypertension Social History Social History Smoking status: Current every day smoker Tobacco type: e-cigarettes/vaping Additional smoking assessment comments: vapes; just graduated to 0% nicotine Alcohol intake: former Substance use: never Substance use type: does not use Lack of Transportation: No Lack of Food: Never True Current Housing: I Have Housing Concerned About Future Housing: No Difficulty Paying Gas/Electric Bills: No Difficulty Paying for Meds: No Currently Unemployed: No Education: Decline to Answer Difficulty w/ Childcare or Family Care: No Spiritual care concerns: No Meds Home Medications and Allergies Home Medications ?Medication ?Instructions ?Recorded ?Confirmed ?Type duloxetine 60 mg capsule,delayed 60 mg PO DAILY #90 caps 07/05/24 12/28/24 Rx release diphenhydramine HCl 50 mg capsule 50 mg PO QHS 07/29/24 12/28/24 History (Unisom SleepGels) pantoprazole 40 mg tablet,delayed 40 mg PO DAILY 07/29/24 12/28/24 History release methylphenidate HCl 27 mg 27 mg PO QAM #30 tabs 11/25/24 12/28/24 Rx tablet,extended release 24 hr (Concerta) meloxicam 7.5 mg tablet 7.5 mg PO DAILY #30 tabs 12/15/24 12/28/24 Rx cephalexin 500 mg capsule 500 mg PO Q8H 7 days #21 caps 12/26/24 12/28/24 Rx sulfamethoxazole 800 1 tablet PO Q12H 7 days #14 tabs 12/26/24 12/28/24 Rx mg-trimethoprim 160 mg tablet (Bactrim DS) Allergies Allergy/AdvReac Type Severity Reaction Status Date / Time doxycycline Allergy Severe Other Verified 12/28/24 13:26 Vital Signs Vital Signs - 24 hr 12/28/24 22:01 12/28/24 22:30 12/29/24 06:00 Temperature 97.8 F 98.1 F Pulse Rate 122 H 77 Respiratory Rate 16 18 Blood Pressure 108/62 120/81 Pulse Oximetry 95 99 Oxygen Delivery Room Air 12/29/24 08:00 12/29/24 14:10 12/29/24 14:48 Temperature 97.7 F Pulse Rate 73 Respiratory Rate 18 Blood Pressure 141/87 H 126/83 Pulse Oximetry 100 Oxygen Delivery Room Air Exam Const: General: comfortable and no acute distress Eyes: General: appearance normal, both eyes and all related structures Neck: Neck: supple and no JVD Resp: Effort & Inspection: normal respiratory effort Cardio: Rate: regular rate Skin: General skin exam: normal color and no rashes or lesions noted Extrem: Other: Fluctuant abscess measuring roughly 4 cm x 2 cm present to right anterior lateral knee distal to patella. Two small areas present where purulent fluid is visualized. From 1 of the areas, fluid can be expressed with pressure. Surrounding redness appears to be decreased from yesterday based off of marker lines. Still significant redness present to 4 x 2 cm area. Tender to the touch. Psych: Mental Status: mental status grossly normal Results Labs 12/28/24 09:44 12/29/24 05:26 Labs: Diabetes panel 12/29/24 Range/Units 05:26 Creatinine 0.82 (0.7-1.3) mg/dL Pituitary panel 12/29/24 Range/Units 05:26 Creatinine 0.82 (0.7-1.3) mg/dL Adrenal panel 12/29/24 Range/Units 05:26 Creatinine 0.82 (0.7-1.3) mg/dL All other labs normal.
--- NOTE | 2024-12-29 16:32 | W.PM.PROC2 ---
Procedure Note - Detailed Date of Procedure 12/29/24 Pre-op Diagnosis RLE cellulitis, failed outpatient abx Post-op Diagnosis Same Procedure Performed Incision and drainage of right anterior lateral knee abscess. Surgeon Amber Blanco PA-C Nuclear Medicine Supervisor Daniela Houston NP Anesthesia Local (Lidocaine 1% with epinephrine.) Indications Patient presented with right knee abscess for the past few days. He had been seen at [facility] and treated with antibiotics, but redness continue to spread, leading him to [facility]. He was then referred to the emergency department. Patient has history of skin abscesses with his last 1 being in 2022. History of MRSA. Description of Procedure The patient was placed in the supine position. The site of abscess for I&D was identified. Following this, the area was prepped with iodine. Then 1% lidocaine with epinephrine was infiltrated directly over the area of fluctuance and abscess formation. After allowing time for local anesthetic to take affect, a direct incision into the subcutaneous tissue was made with #11 blade scalpel over the fluctuant area. The incision was approximately 1 cm long. Immediate flow of purulent drainage was noted. A culture was obtained. All loculations were broken up. The abscess cavity was probed and all purulent drainage was expressed from the abscess. Following this, the area was packed with 1/4 iodoform gauze and the area was covered with gauze and tape. Estimated Blood Loss 2 Drains No Packing Yes (1/4 inch iodoform) Pathology None sent Complications No immediate complications Condition Stable Disposition Floor [facility] Billing Surgery - Charge Forward: Surgery Billing
[2024-12-29] MEDS: cefTRIAXone 1 GM in SODIUM CHLORIDE 0.9% IV 50 ML 100 ML IVPB (17:32)
[2024-12-29] MEDS: MELATONIN 5 MG TABLET PO (20:41)
[2024-12-29 22:20] VITALS: BP 113/89; PULSE 78; RESP 20; TEMP 36.2; O2SAT 100
[2024-12-30 06:10] LABS: Hematocrit 37.9 % (42.0-52.0); Hemoglobin 12.5 g/dL (14.0-18.0); Immature Granulocyte Percent A 0.8 % (0-0.5); Lymphocytes Absolute Auto 1.15 K/mm3 (0.9-3.2); Mean Corpuscular HGB Conc 33.0 g/dl (32-36); Mean Corpuscular Hemoglobin 29.7 pg (26-34); Mean Corpuscular Volume 90.0 fl (80-100); Nucleated Red Blood Cells Absolute Auto 0.000 K/mm3 (0.0-0.012); Nucleated Red Blood Cells Perc 0.0 % (0.0-0.2); Platelet Count Result 243 k/mm3 (150-375); Red Blood Count 4.21 M/mm3 (4.6-6.20); White Blood Count 3.8 K/mm3 (4.5-10.0)
[2024-12-30 06:39] LABS: Alanine Aminotransferase 41 U/L (6-50); Albumin Level 3.5 g/dL (3.5-5.1); Alkaline Phosphatase 82 U/L (38-126); Aspartate Amino Transferase 29 U/L (17-59); Bilirubin,Total 0.3 mg/dL (0.2-1.3); Blood Urea Nitrogen 21 mg/dL (9-20); Calcium 8.5 mg/dL (8.4-10.2); Carbon Dioxide 24 mmol/L (22-30); Chloride 106 mmol/L (98-107); Estimated CRCL calculation 107 ml/min; Estimated Glomerular Filt Rate > 60; Glucose 106 mg/dL (65-110); Magnesium 2.2 mg/dL (1.6-2.3); Potassium 4.6 mmol/L (3.4-5.0); Total Protein 6.2 g/dL (6.3-8.2)
[2024-12-30 06:46] LABS: Anion Gap 6 mmol/L (4-12); Sodium 136 mmol/L (137-145)
[2024-12-30] MEDS: ENOXAPARIN 40 MG/0.4 ML SYRINGE SUB-Q (08:23)
[2024-12-30] MEDS: DULoxetine HCL 60 MG CAPSULE.DR PO (08:23)
[2024-12-30] MEDS: VANCOMYCIN 1,750 MG/NS 500 ML 1,750 MG/500 ML BAG 250 MG IVPB (08:25)
[2024-12-30] MEDS: KETOROLAC 15 MG/ML VIAL (*BKC) IV PUSH (10:57)
--- NOTE | 2024-12-30 11:07 | P.PNGS_ITS ---
Progress Note: A&P Assessment and Plan (1) Cellulitis of leg, right: Code(s): L03.115 - Cellulitis of right lower limb Status: Acute Assessment and Plan: * POD1 status post bedside incision and drainage of right lateral abscess. Packing changed today. Wound appears to be healing as expected. Full range of motion intact. Patient has been walking without difficulty. He does not note any new joint pain since the procedure. Afebrile. WBC 3.8. * OK to transition to oral antibiotics and discharge today with follow up in 2 weeks in general surgery office. (2) Anxiety: Code(s): F41.9 - Anxiety disorder, unspecified Status: Acute Subjective Subjective Date/Time Seen: 12/30/24 11:07 Patient reports: no new complaints and feels better Interval history: Patient doing well POD1 s/p bedside I&D of right knee abscess. Patient states that he felt immediate relief and he has been able to walk without any difficulty. He is feeling ready for discharge. Exam Const: General: comfortable and no acute distress Extrem: Other: Right lateral distal knee abscess drained yesterday. Packing changed today at bedside. Surrounding redness appears significantly decreased. No new areas of fluctuance. Objective Data Vital Signs Vital Signs: Vital Signs - 24 hr 12/29/24 14:10 12/29/24 14:48 12/29/24 20:41 Temperature 97.7 F Pulse Rate 73 Respiratory Rate 18 Blood Pressure 141/87 H 126/83 Pulse Oximetry 100 Oxygen Delivery Room Air 12/29/24 22:20 Temperature 97.1 F L Pulse Rate 78 Respiratory Rate 20 Blood Pressure 113/89 Pulse Oximetry 100 Oxygen Delivery Intake/Output Intake/Output: Intake & Output 12/27/24 12/28/24 12/29/24 12/30/24 23:59 23:59 23:59 23:59 Intake Total 2610 2300 360 Balance 2610 2300 360 Meds/Results Medications: Active Medications Generic Name Dose Route Start Last Admin Trade Name Freq PRN Reason Stop Dose Admin Acetaminophen 650 mg 12/29/24 08:59 12/29/24 09:20 Acetaminophen 325 Mg Tablet PO 650 mg Q6H PRN Administration Mild Pain (1-3) or Fever Duloxetine HCl 60 mg 12/29/24 09:00 12/30/24 08:23 Duloxetine Hcl 60 Mg Capsule.Dr PO 60 mg DAILY MADISON Administration Enoxaparin Sodium 40 mg 12/29/24 09:00 12/30/24 08:23 Enoxaparin 40 Mg/0.4 Ml Syringe SUB-Q 40 mg DAILY MADISON Administration Ceftriaxone Sodium 1 gm/ 50 mls @ 100 mls/hr 12/28/24 18:00 12/29/24 17:32 Sodium Chloride IVPB 100 mls/hr Q24H MADISON Administration Vancomycin HCl 1,750 mg in 500 mls @ 250 mls/hr 12/30/24 08:00 12/30/24 08:25 Vancomycin 1,750 Mg/Ns 500 Ml IVPB 250 mls/hr Q12H MADISON Administration Ketorolac Tromethamine 15 mg 12/28/24 19:48 12/30/24 10:57 Ketorolac 15 Mg/Ml Vial (*Bkc) IV PUSH 15 mg Q6H PRN Administration Pain Rated 4-6 Melatonin 5 mg 12/28/24 19:48 12/29/24 20:41 Melatonin 5 Mg Tablet PO 5 mg HS PRN Administration Insomnia Radiology Results: ITS Impressions Venous Doppler Study 12/28/24 11:52 Impression: Negative for DVT. Labs Labs: Laboratory Results - last 24 hr 12/30/24 06:02 WBC 3.8 L RBC 4.21 L Hgb 12.5 L Hct 37.9 L MCV 90.0 MCH 29.7 MCHC 33.0 RDW 12.4 Plt Count 243 MPV 8.4 Immature Gran % (Auto) 0.8 H Neut % (Auto) 59.5 Lymph % (Auto) 30.6 [place] % (Auto) 7.2 Eos % (Auto) 1.6 Baso % (Auto) 0.3 Lymph # (Auto) 1.15 [place] # (Auto) 0.3 Eos # (Auto) 0.1 Baso # (Auto) 0.0 Abs Immat Gran (auto) 0.03 Absolute Neuts (auto) 2.2 Absolute Nucleated RBC 0.000 Nucleated RBC % 0.0 Sodium 136 L Potassium 4.6 Chloride 106 Carbon Dioxide 24 Anion Gap 6 BUN 21 H D Creatinine 0.83 Estim Creat Clear Calc 107 Estimated GFR > 60 Glucose 106 Calcium 8.5 Magnesium 2.2 Total Bilirubin 0.3 AST 29 ALT 41 Alkaline Phosphatase 82 Total Protein 6.2 L Albumin 3.5 Vancomycin Trough 9.4 L
--- NOTE | 2024-12-30 11:21 | P.DS_ITS ---
DS: Admitting Diagnosis Discharge Date 12/30/24 Admitting Diagnosis right leg pain and redness DS: Discharge Diagnosis Discharge Diagnosis (1) Cellulitis of leg, right: Code(s): L03.115 - Cellulitis of right lower limb Status: Acute DS: Summary Hospital Course Hospital Course: 39 yo male with PMH of anxiety who presented to the ER on account of worsening right knee pain, redness and swelling, Patient noted he noticed a pimple spot on his knee about a week however it was continued to worsen by increasing pain and redness whcih caused him to presented to the Urgent care on Friday where he was given Keflex adn bactrim, symptoms continued to worsen regardless prompting him to present to the ER for proper eval and care. DEnies any chest pain, abd pain, vomiting, diarrhea, SOB and fever. Noted he noticed a skin erosion today. ER eval notable Temp 98.8, HR 107, RR 18, RR 18 and BP 131/83. Labs notable for WBC 10.2, ALT 59, XR tibia/fibular and knee no acute changes. Venous doppler no thrombosis. He was started on Keflex prior to admission. Patient was transitioned to Rocephin and Vancomycin on admission for Cellulitis and abscess. Symptoms relief was noticedon this regimen. Gen surgery was consulted adn patient underwent I adn D, culture still pending. Patient discharged today on Linezolid and CEfdinir to complete a total of 10 days of Abx. Discussed with patient and to hold Cymbalta and Mehtylphendate within this period and he understood and agreed, to avoid interations wiht Linezolid Patient will follow up with his PCP who is within [facility] network in 3-5 days for Culture results Time Spent with Patient Time attestation: Total time spent providing and/or coordinating discharge services: DS: Data Data Completed and Pending Labs on day of discharge: Labs from last 24 hours 12/30/24 06:02 WBC 3.8 L RBC 4.21 L Hgb 12.5 L Hct 37.9 L MCV 90.0 MCH 29.7 MCHC 33.0 RDW 12.4 Plt Count 243 MPV 8.4 Immature Gran % (Auto) 0.8 H Neut % (Auto) 59.5 Lymph % (Auto) 30.6 [place] % (Auto) 7.2 Eos % (Auto) 1.6 Baso % (Auto) 0.3 Lymph # (Auto) 1.15 [place] # (Auto) 0.3 Eos # (Auto) 0.1 Baso # (Auto) 0.0 Abs Immat Gran (auto) 0.03 Absolute Neuts (auto) 2.2 Absolute Nucleated RBC 0.000 Nucleated RBC % 0.0 Sodium 136 L Potassium 4.6 Chloride 106 Carbon Dioxide 24 Anion Gap 6 BUN 21 H D Creatinine 0.83 Estim Creat Clear Calc 107 Estimated GFR > 60 Glucose 106 Calcium 8.5 Magnesium 2.2 Total Bilirubin 0.3 AST 29 ALT 41 Alkaline Phosphatase 82 Total Protein 6.2 L Albumin 3.5 Vancomycin Trough 9.4 L Preliminary micro results at discharge 12/28/24 09:54 Blood Culture - Preliminary Blood 12/28/24 09:44 Blood Culture - Preliminary Blood Discharge Plan Discharge Attending physician on discharge: Sameer Churchill Consulting providers: Marie Foreman; [place] F[place] Discharging Clinician: Sameer Churchill Anticipated Discharge Date/Time: 12/30/24 11:12 Patient Disposition: Home Activity: as tolerated Diet: as tolerated and regular Discharge Instructions: Continue daily packing changes to right knee wound with 1/4 inch iodoform gauze. Cover with 4 x 4 gauze and secure with Medipore tape. Call the general surgery office at [phone] to schedule a follow-up appointment for 2 weeks after discharge. Continue antibiotics as prescribed. Patient Instructions: Antibiotic Form Patient Language: Mauritian Stand Alone Forms: General Discharge Information Follow-up/Referrals: Amber Blanco PA-C [Physician Signaling Project Engineer, General Surgery] - 2 Weeks Referral Note: Call to schedule. Discharge Medications: New linezolid 600 mg tablet 600 mg PO Q12H 7 Days Qty: 14 0RF cefdinir 300 mg capsule 300 mg PO Q12H 10 Days Qty: 20 0RF Continued cephalexin 500 mg capsule 500 mg PO Q8H 7 Days Qty: 21 0RF sulfamethoxazole-trimethoprim [Bactrim DS] 800-160 mg tablet 1 tablet PO Q12H 7 Days Qty: 14 0RF duloxetine 60 mg capsule,delayed release(DR/EC) 60 mg PO DAILY Qty: 90 1RF diphenhydramine HCl [Unisom SleepGels] 50 mg capsule 50 mg PO QHS pantoprazole 40 mg tablet,delayed release (DR/EC) 40 mg PO DAILY methylphenidate HCl [Concerta] 27 mg tablet extended release 24hr 27 mg PO QAM Qty: 30 0RF meloxicam 7.5 mg tablet 7.5 mg PO DAILY Qty: 30 0RF Date of admission: 12/28/24 13:50 Primary Care Provider: [place] Admitting Provider: Sameer Churchill Attending physician on admission: Sameer Churchill Condition: Stable
== END 2024-12-30 12:05 | disposition home or self-care (01) | DRG 603 ==
LOC: ANHED 11:10 → ANH3MEDSUR 12:10
PROVIDERS: Admitting Provider Internal Medicine; Emergency Provider Registered Nurse; PCP Family Medicine; Visit Provider Internal Medicine
DX: L02.415 Cutaneous abscess of right lower limb (principal); L03.115 Cellulitis of right lower limb; B95.61 Methicillin susceptible Staphylococcus aureus infection as the cause of diseases classified elsewhere; F41.9 Anxiety disorder, unspecified; F43.10 Post-traumatic stress disorder, unspecified; F17.290 Nicotine dependence, other tobacco product, uncomplicated; F11.10 Opioid abuse, uncomplicated; F12.10 Cannabis abuse, uncomplicated; F10.11 Alcohol abuse, in remission; Z79.2 Long term (current) use of antibiotics; Z86.14 Personal history of Methicillin resistant Staphylococcus aureus infection; Z87.2 Personal history of diseases of the skin and subcutaneous tissue
CPT/HCPCS: 36415; 73564; 73590; 80053; 80202; 80307; 81001; 82565; 83605; 83735; 85025; 85610; 85730; 86140; 87040; 87070; 87075; 87186; 93971; 96361; 96365; 96375; 99285; A9270; G0378; J0690; J0696; J1650; J1885; J3373; J7030